=== PATIENT | female | born 1965 | race American Indian/Alaskan Native ===

== ENCOUNTER 2022-03-27 11:28 | Emergency (ER) | payer OTHER ==
[2022-03-27 11:48] VITALS: BP 168/110
[2022-03-27] MEDS ORDERED: FAMOTIDINE 20 MG TAB PO ONE (13:13)
[2022-03-27] MEDS ORDERED: diphenhydrAMINE 25 MG CAP PO ONE (13:13)
[2022-03-27] MEDS ORDERED: methylPREDNISolone Sod Succinate 125 MG/2 ML INJ IM ONE (13:13)
--- NOTE | 2022-03-27 14:12 | Emergency Department Report ---
ED Allergic Reaction HPI - General Chief complaint: Dyspnea/Respdistress Stated complaint: DIFFICULTY IN BREATHING Time Seen by Provider: 03/27/22 13:02 Source: patient, family, EMS Mode of arrival: Stretcher Limitations: No Limitations - History of Present Illness Initial Comments: 57 yo black female with no pmh presents to ed for evaluation of allergic reaction. She states that something bit her to her right posterior upper arm, and then she developed a welt to area followed by sob, chest tightness, dizziness, and itching all over. She states that she took a "piece" of a benadryl tablet without improvement. MD Complaint: allergic reaction -: Sudden Exposure: insect bite Symptoms: rash, itching, difficulty breathing, dizziness. denies: facial swelling, lip swelling, difficulty swallowing, orolingual swelling, hoarseness, nausea, vomiting, abdominal pain Severity: moderate Treatment Prior to Arrival: benadryl Previous Allergy History: none - Related Data Previous Rx's Medication Instructions Recorded Last Taken Type EPINEPHrine [Epipen 2-Te] 0.3 mg IJ ONCE PRN #1 pack 03/27/22 Unknown Rx hydrOXYzine PAMOATE [Vistaril] 25 mg PO Q6HR PRN #21 capsule 03/27/22 Unknown Rx Allergies Allergy/AdvReac Type Severity Reaction Status Date / Time No Known Allergies Allergy Verified 03/27/22 11:47 ED Review of Systems ROS: Stated complaint: DIFFICULTY IN BREATHING Other details as noted in HPI Comment: All other systems reviewed and negative Constitutional: denies: chills, fever Eyes: denies: vision change ENT: denies: throat pain, congestion Respiratory: shortness of breath Cardiovascular: chest pain. denies: palpitations, dyspnea on exertion, orthopnea, edema, syncope, paroxysmal nocturnal dyspnea Gastrointestinal: denies: abdominal pain, nausea, vomiting Musculoskeletal: denies: back pain Skin: pruritus Neurological: denies: headache ED Past Medical Hx - Medications Home Medications: Home Medications Medication Instructions Recorded Confirmed Last Taken Type EPINEPHrine [Epipen 2-Te] 0.3 mg IJ ONCE PRN #1 pack 03/27/22 Unknown Rx hydrOXYzine PAMOATE [Vistaril] 25 mg PO Q6HR PRN #21 capsule 03/27/22 Unknown Rx ED Physical Exam - General Limitations: No Limitations General appearance: alert, in no apparent distress - Head Head exam: Present: atraumatic, normocephalic - Eye Eye exam: Present: normal appearance. Absent: conjunctival injection, periorbital swelling, periorbital tenderness - ENT ENT exam: Present: normal exam, normal orophraynx - Expanded ENT Exam Expanded Mouth exam: Present: tongue normal. Absent: drooling, muffled voice, other (no uvula swelling noted. ) Throat exam: Positive: normal inspection. Negative: tonsillomegaly - Neck Neck exam: Present: normal inspection. Absent: lymphadenopathy - Respiratory Respiratory exam: Present: normal lung sounds bilaterally. Absent: respiratory distress, wheezes, rales, rhonchi, stridor, chest wall tenderness - Cardiovascular Cardiovascular Exam: Present: regular rate, normal heart sounds - GI/Abdominal GI/Abdominal exam: Present: soft, normal bowel sounds. Absent: distended, tenderness, guarding, rebound, rigid - Extremities Exam Extremities exam: Present: normal inspection, normal capillary refill. Absent: pedal edema, joint swelling, calf tenderness - Back Exam Back exam: Present: normal inspection. Absent: vertebral tenderness - Neurological Exam Neurological exam: Present: alert, oriented X3 - Psychiatric Psychiatric exam: Present: normal affect, normal mood - Skin Skin exam: Present: warm, dry, intact, normal color, urticaria (to right posterior upper arm) ED Course Vital Signs 03/27/22 03/27/22 11:45 14:44 Temperature 98 F Pulse Rate 98 H 98 H Respiratory 16 Rate Blood Pressure 168/110 168/110 [Left] O2 Sat by Pulse 98 98 Oximetry - Reevaluation(s) Reevaluation #1: 03/27/22 14:08 Right upper arm welts and itching improved. ED Medical Decision Making - Medical Decision Making 57 yo black female with no pmh presents to ed for evaluation of allergic reaction. She states that something bit her to her right posterior upper arm, and then she developed a welt to area followed by sob, chest tightness, dizziness, and itching all over. She states that she took a "piece" of a benadryl tablet without improvement. Symptoms improved after medications. Patient will be discharged home with vistaril to use as needed for itching adn an epipen. She is advised to follow up with an alumni relations coordinator for further evaluation and management or return to ed for any concerning symptoms. She verbalized understanding of and agreement with plan of care. Critical care attestation.: If time is entered above; I have spent that time in minutes in the direct care of this critically ill patient, excluding procedure time. ED Disposition Clinical Impression: Allergic reaction Qualifiers: Encounter type: initial encounter Qualified Code(s): T78.40XA - Allergy, unspecified, initial encounter Disposition: 01 HOME / SELF CARE / HOMELESS Is pt being admited?: No Does the pt Need Aspirin: No Condition: Stable Instructions: How to Use an Auto-Injector Pen, Anaphylactic Reaction, Adult, [id number], Hives, [id number], Bee, Wasp, or Hornet Sting, Adult Additional Instructions: Take medication as prescribed. Follow-up with alumni relations coordinator for further evaluation and management. Return to the emergency department as needed. Prescriptions: EPINEPHrine [Epipen 2-Te] 0.3 mg IJ ONCE PRN #1 pack PRN Reason: Anaphylaxis hydrOXYzine PAMOATE [Vistaril] 25 mg PO Q6HR PRN #21 capsule PRN Reason: Itching Referrals: SALAZAR LENTZ MD [Staff Physician] - 3-5 Days Forms: Work/School Release Form(ED) Time of Disposition: 14:11
== END 2022-03-27 14:44 | disposition home or self-care (01) ==
LOC: ED 11:28
DX: R07.9 Chest pain, unspecified (principal); T78.40XA Allergy, unspecified, initial encounter; X58.XXXA Exposure to other specified factors, initial encounter
CPT/HCPCS: 96372; 99283; J2930